=== PATIENT | female | born 1995 | race Caucasian/White ===

== ENCOUNTER 2017-05-23 09:36 | Emergency (ER) | payer OTHER ==
[~2017-05-23 09:36] MED LIST: BENADRYL25 M3 PO; CIPRO PO; CLARITIN10 M3 DOB; DARVOCET-N 1001 TAB PO; IBUPROFEN800 MG PO; LORTAB 5/500 TA1 TA1 PO; LORTAB 7.5-5001 TAB PO; MEDROL DOSEPAK4 MG PO; NAPROSYN375 MG PO; OMNICEF300 MG PO; PEPCID PO; PHENERGAN25 MG PO; SUPRAX PO; VICODIN 5/1 TAB 5/50 PO
== END 2017-05-23 10:27 | disposition home or self-care (01) ==
LOC: SED 09:36
DX: L50.9 Urticaria, unspecified (principal); F31.9 Bipolar disorder, unspecified; Z90.49 Acquired absence of other specified parts of digestive tract; F17.200 Nicotine dependence, unspecified, uncomplicated; Z88.0 Allergy status to penicillin; Z88.1 Allergy status to other antibiotic agents; Z91.040 Latex allergy status; Z79.899 Other long term (current) drug therapy; Z91.011 Allergy to milk products
CPT/HCPCS: 99282